=== PATIENT | female | born 1955 | race Caucasian/White ===

== ENCOUNTER 2018-06-03 00:50 | Outpatient (CLI) | payer OTHER, SELFPAY ==
--- NOTE | 2018-06-03 09:20 | DI.US_ITS ---
SYMPTOMS/DIAGNOSIS: ABD PAIN, CHOLELITHIASIS, CALCULUS OF GALLBLADDER W/O CHOLECYSTITIS W/O OBSTRUCTION, K80.20 ABDOMINAL ULTRASOUND: The visualized liver parenchyma is normal in appearance. Note is made of cholelithiasis with a 3 cm gallstone. No gallbladder wall thickening or pericholecystic fluid collection seen. There is a large quantity of gallbladder sludge. No biliary dilatation seen. The pancreas appears intact as visualized. The kidneys are unremarkable in appearance. The abdominal aorta and IVC are of normal diameter. CONCLUSION: Cholelithiasis.
--- NOTE | 2018-06-03 09:20 | DI.RAD_ITS ---
SYMPTOM/DIAGNOSIS: COUGH, R05 PA AND LATERAL CHEST: The heart is normal in size. The lungs are clear. The mediastinal structures and pleura appear intact. CONCLUSION: Normal chest.
[2018-06-03 11:31] LABS: ALT 36 U/L (12-78); AST 21 U/L (15-37); Alkaline Phosphatase 102 U/L (46-116); Anion Gap 9.6 mmol/L (3-11); BUN 13 mg/dL (7-18); Bilirubin, Total 0.4 mg/dL (0.2-1.0); CO2 29.4 mmol/L (21.0-32.0); CREATININE 1.01 mg/dL (0.55-1.02); Calcium 9.6 mg/dL (8.5-10.1); Chloride 102 mmol/L (98-107); Cholesterol 283 mg/dL (50-200); Estimated GFR 55.36 (mL/min/1.73m2); Glucose 89 mg/dL (70-100); HDL Cholesterol 71 mg/dL (40-60); LDL CHOLESTEROL 186 mg/dL (<100); Potassium 4.1 mmol/L (3.5-5.1); Sodium 141 mmol/L (136-145); Total Protein 7.8 g/dL (6.4-8.2); Triglyceride 134 mg/dL (30-150)
== END 2018-06-03 01:10 ==
PROVIDERS: PCP Family Medicine; Visit Provider Family Medicine
DX: R10.84 Generalized abdominal pain (principal); K80.20 Calculus of gallbladder without cholecystitis without obstruction; R05 Cough; E78.5 Hyperlipidemia, unspecified
CPT/HCPCS: 36415; 80053; 80061; 83721; 71046; 76700

== ENCOUNTER 2018-08-25 07:07 | Day surgery (SDC) | payer OTHER, SELFPAY ==
[2018-08-25] VITALS (8 sets, daily range): BP systolic 118–131; BP diastolic 42–90; PULSE 48–67; RESP 12–19; TEMP 36.7–36.9; O2SAT 94–99
--- NOTE | 2018-08-25 06:50 | W.PM.OP ---
Date of service: 08/25/18 Time of Service: 09:29 Operative Note DATE OF PROCEDURE: 08/25/18 PRE-OP DIAGNOSIS: Symptomatic Cholelithiasis POST-OP DIAGNOSIS: same PROCEDURE: Laparoscopic Cholecystectomy SURGEON: Elizabeth Gottlieb BEATER OPERATOR: Meenakshi Burgess ANESTHESIA: GETA, regional and local (Exparel 10 cc) ESTIMATED BLOOD LOSS: 100 PATHOLOGY: other (Gallbladder) COMPLICATIONS: None Patient was transported to: PACU Patient's condition: stable Indications: Mrs. Camacho is a pleasant 63-year-old female who was seen in the office with gallstones and postprandial right upper quadrant pain. Risks, benefits, complications were reviewed with the patient in the office. Complications include but are not limited to bleeding, infection, injury to stomach, small bowel and large bowel, injury to the pancreas, injury to the common bile duct necessitating drainage and referral to tertiary center for repair, bile leak, adverse reactions to the medications, complications of intubation including a sore throat or injury to the uvula, SC, stroke and even . Questions were entertained and answered to her satisfaction and she wished to proceed. No guarantees were given or implied. Procedure Description: After informed consent was obtained the patient was taken to the PACU and anesthesia performed a erector spine block for postoperative comfort. Once the block was in place the patient was brought to the operating room, placed in a supine position and monitors were applied. SCDs were applied to her lower extremities and she was placed under general anesthesia and intubated without difficulty. Once intubated a Marshall catheter was placed in a standard sterile fashion. Her abdomen was then prepped and draped in a sterile fashion using ChloraPrep. At this point a timeout was done and the patient's name, date of , procedure type, allergies to medications, metal in her body, antibiotic and DVT prophylaxis, and fire risk was assessed. At this point exparel was injected just above the umbilicus into the dermis and subcutaneous tissue. A 5 mm incision was made with an 11 blade. A small umbilical hernia was noticed. A small hemostat was placed gently through the hernia. The skin next to the incision was grasped with penetrating towel clamps and while pulling up on the skin a 5 mm port was placed under direct visualization through a small umbilical hernia. The abdomen was insuflated and then 3 more ports were placed. A 12 mm port was placed in the subxiphoid area and two 5 mm ports were placed in the right upper quadrant. The liver was inspected and was normal. The patient's bed was then turned to the left and her head was brought up. The gallbladder was grasped at the body and pushed towards the right shoulder. There was a lot of inflammation around the Gallbladder and around the cystic duct. A large stone was noted in the neck of the Gallbladder. The neck was grasped with a 5 mm laparoscopic tenaculum and pulled towards the right flank and down allowing me to visualize the lymph node. Using a [place] dissector with cautery the lymph node was gently dissected away from the tissues and the fatty tissue was also dissected away. The cystic duct was identified it was normal in size. The duct was dissected 360 degrees using the [place] dissector in order for me to visualize its entrance into the gallbladder. The hook was used to dissected the fat and scar tissue away from the Gallbladder in order to visualize the liver. Liver was noted behind it. There were no other structures right behind. Critical view was achieved. 3 clips were placed one proximal and 2 distal and the cystic duct was cut. The cystic artery was then identified and dissected 360 degrees. It was located just medial to the cystic duct. It was visualized going into the gallbladder. Once dissected 3 more clips were placed one proximal and 2 distal and the artery was cut. Using the hook dissector the gallbladder was then dissected away from the liver bed and placed into an Endo Catch bag. The 12 mm port was removed and the incision had to be enlarged in order to get the stones through the incision. Once the Gallbladder was removed the fascia was partailly closed with a figure of eight suture of 0 vicryl. The 12 mm port was placed back into the abdomen under direct visualization. The liver bed was inspected no bleeding was noted. The abdomen was then irrigated with a liter and a half of normal saline until the effluent was clear. Once all the fluid was suctioned out, 10 cc of Lidocaine was injected above the liver to help with postoperative right shoulder pain. The 12 mm and the 2 right upper quadrant ports were removed under direct visualization and no bleeding was noted from the fascia. The abdomen was deflated completely and lastly the umbilical port was removed. The fascia at the subxiphoid incison was closed with a second 0 vicryl suture. The umbilical hernia was closed with a figure of eight 0 Vicryl suture. The skin was cleaned and the incisions were closed with 4-0 Vicryl. The skin was dried and skin affix was applied over the closed incisions. Needle and sponge counts were correct at the end of the case. The Marshall catheter was removed. At this point the patient was woken up, extubated and taken back to recovery in stable condition. There were no immediate complications.
--- NOTE | 2018-08-25 06:53 | W.PM.DSUDISC ---
Discharge Plan Disposition Patient Disposition: HOME Condition: Good Discharge Details Reason For Visit: Biliary Cholic Attending Provider: Elizabeth Gottlieb Primary Care Provider: Isaura Early Home Meds and New Rx's Prescriptions: New acetaminophen [Tylenol] 325 mg Tablet 650 mg PO Q6H PRN (Reason: fever or pain) Qty: 30 RF: 0 ibuprofen [IBU] 600 mg Tablet 600 mg PO Q6H PRN PRN (Reason: Pain) Qty: 30 RF: 0 oxycodone 5 mg Tablet 5 mg PO Q6H PRN PRN (Reason: Pain) Qty: 10 RF: 0 Continued turmeric root extract 500 mg capsule 500 mg PO DAILY RF: 0 mdzocofwxinf-hkzomnlr-oympdu tablet 1 tab PO DAILY RF: 0 red yeast rice 600 MG capsule 600 mg PO DAILY RF: 0 Discharge Instructions Instructions: Laparoscopic Cholecystectomy (DC) Additional Instructions: Activity at Home after surgery: 1. Make sure you walk outside at least 4 times per day 2. You should be able to climb a flight of stairs 3. No driving while in pain or taking pain medications 4. No strenuous activity or heavy lifting for 2 weeks (laparoscopic surgery) Diet, Nutrition, & wound healin. Avoid alcohol until after you are recovered from your surgery 2. Make sure to eat plenty of lean protein (meat, fish, eggs, cottage cheese, beans) 3. Eat a variety of fruits and vegetables. Eat plenty of high fiber foods to avoid constipation. 4. Drink plenty of liquids to stay hydrated and avoid constipation Pain Medications: 1. Alternate Tylenol 650 mg and Ibuprofen 600 mg every 3 hours 2. If a narcotic has been prescribed take as directed only for breakthrough pain For Constipation: 1. Take Milk of Magnesia or MiraLax as needed for constipation Other: 1. You may shower daily. Do not scrub the incisions 2. Do not soak the incisions for 1 week 3. You may alternate ice and heat as needed for pain and swelling Wound Care: 1. Keep the incisions clean and dry Please call our office if you develop: 1. Fevers >101.5 2. Nausea or Vomiting 3. Worsening pain 4. Redness and thick discharge from the wounds If after hours please call the Hospital at and ask to speak to the on-call surgeon Stand Alone Forms: DSU Post op Instructions, Linda Rob (DSU) Referrals: Elizabeth Gottlieb MD [ [facility] STAFF PHYSICIAN] - 09/10/18 9:00 am Activity:: Activity as Tolerated Diet:: As Tolerated Discharge Orders Discharge Orders: Discharge Order (Routine); Ordered 08/25/18 Ordered By: Elizabeth Gottlieb DS: Diagnosis Discharge Diagnosis (1) Biliary colic symptom: Status: Acute (2) S/P laparoscopic cholecystectomy: Status: Acute
[2018-08-25] MEDS: Lactated Ringers 1,000 ML 80 ML IV (08:05)
[2018-08-25] MEDS: Bupivacaine 0.25% Pres-Free 30 ML VIAL (08:45)
[2018-08-25] MEDS: AMPICILLIN/SULBACTAM 3 GM in Normal Saline 100 ML IVPB (09:03)
[2018-08-25] MEDS: Lidocaine 1% Pres-Free 5 ML VIAL (09:57)
--- NOTE | 2018-08-25 10:24 | GB_PTH ---
PATIENT: Tatum Camacho LOC: [facility] U#:[id number] AGE/SX: 63/F ROOM: RE08/25/[address]: Elizabeth Gottlieb MD : 1955 BED: DIS: 08/25/2018 SPEC #: [id number] RECD: 08/25/18 12:36 STATUS: RAMU REQ #: [id number] POLINA: 08/25/18 10:[address]: Elizabeth Gottlieb DEPT: Surgical Specimen RECD BY: Italia Osei ENTERED: 08/25/18 12:36 SP TYPE: GB OTHR DR: Isaura Early MD, DC Tissues: 1 - GALLBLADDER Procedures: GROSS AND MICRO LEVEL 3 Comments: [id number]
[2018-08-25] MEDS: Bupivacaine LIPOSOME/PF 133 MG/10 ML VIAL IJ (10:41)
== END 2018-08-25 14:43 | disposition home or self-care (01) ==
LOC: SUR 07:08
PROVIDERS: PCP Family Medicine; Visit Provider Surgery
PROC: 0FT44ZZ Resection of Gallbladder, Percutaneous Endoscopic Approach (ICD-10-PCS; CPT 47562; principal; 2018-08-25 08:30)
DX: K80.10 Calculus of gallbladder with chronic cholecystitis without obstruction (principal); K21.9 Gastro-esophageal reflux disease without esophagitis
CPT/HCPCS: 47562; 76942; 88304; J0295; J0360; J1100; J1885; J2250; J2405

== ENCOUNTER 2019-04-22 03:08 | Outpatient (CLI) | payer OTHER, SELFPAY ==
--- NOTE | 2019-04-22 09:07 | DI.US_ITS ---
EXAM: US ABDOMEN CLINICAL HISTORY: RUQ PAIN, S/P LAPAROSCOPIC CHOLECYSTECTOMY, R10.11, Z90.49 TECHNIQUE: Ultrasound performed using standard protocol. COMPARISON: US OR ANESTHESIA from 08/25/2018 FINDINGS: Visualized liver parenchyma is normal in appearance. The patient has reportedly had a recent cholecy stectomy. No focal fluid collection in the gallbladder fossa or elsewhere. Minimal heterogeneous ec hogenicity seen in the gallbladder fossa consistent minimal resolving hematoma. No biliary dilatatio n. Pancreas is not well visualized grossly unremarkable. Spleen and kidneys are normal in appearanc e. No evidence of urinary tract calcification or obstruction. IMPRESSION: Unremarkable abdominal ultrasound post cholecystectomy. No evidence of abscess.
== END 2019-04-22 03:28 ==
PROVIDERS: PCP Family Medicine; Visit Provider Family Medicine
DX: R10.11 Right upper quadrant pain (principal); Z90.49 Acquired absence of other specified parts of digestive tract
CPT/HCPCS: 76700

== ENCOUNTER 2020-07-09 02:14 | Outpatient (CLI) | payer MEDICARE, OTHER, SELFPAY ==
--- NOTE | 2020-07-09 07:15 | DI.CT_ITS ---
EXAM: CT NECK W CLINICAL HISTORY: neck mass,R22.1. TECHNIQUE: Imaging Protocol: Axial CT angiography was performed with multi-slice acquisition and mu lti-planar and/or 3D reconstructions. CONTRAST MATERIAL: Intravenous: Omnipaque 350 Contrast volume:100 cc COMPARISON: No exams were available for comparison FINDINGS: The right maxillary sinus is diminutive and opacified and exhibits what is probably a medial wall alexandro gical defect. Left maxillary sinus appears unremarkable. Sphenoid sinuses are clear as are the visu alized ethmoidal air cells. Tissues of the nasopharynx are symmetrical. Oropharynx tissues appear unremarkable. Hypopharynx tissues appear unremarkable. No obvious abnormality in the vallecular I nor asymmetry of the free edge of the epiglottis. Supraglottic airway is thin but probably related to respiration du ring scan acquisition. The aryepiglottic folds appear symmetrical. Vocal cords unremarkable. Subgl ottic airway unremarkable. Thyroid gland is unremarkable. Salivary glands: No significant masses in the left parotid gland. There is a small nodule in the inf erior aspect of the right parotid gland which measures 8 by 6 millimeters. Both submandibular glands appear unremarkable. Lymph nodes: There is no significant lymphadenopathy in the left side of the neck. In the right-side of the neck there are 2 slightly prominent lymph nodes posterior and posterolateral to the sternocleidomastoid m uscle. These measure up 11 by 9 and 9 by 8 millimeters. Just inferomedial to these there is a 3rd l ymph node measuring 10 by 7 millimeters, this behind the lateral aspect of the right sternocleidomast oid muscle and just lateral to the right internal jugular vein. This is just above the right supracl avicular region. Vascular: No significant tight stenosis the carotid bifurcations and proximal internal carotid arteri es in the neck. Both vertebral arteries contribute to the formation of the basilar artery at the [facility]. IMPRESSION: 1. There are 3 enlarged lymph nodes with measurements described above in the lower right side of the neck at and just above the supraclavicular region. There is some mild subcutaneous fat streaking in this region. No drainable fluid collection. There are few smallel shotty lymph nodes in the left cesar praclavicular region noted. 2. Small nodule or lymph node in the inferior aspect of the right parotid gland measuring 8 x 6 jeny meters. 3. Diminutive and opacified right maxillary sinus incidentally noted. RADIATION DOSE DELIVERED: 368.06mGy.cm Total DLP DATA REPOSITORY: All CT scans at this facility are submitted to the National Radiology Data Registry (NRDR) Dose Index Registry (DIR) with the [employer] (ACR). RADIATION OPTIMIZATION: All CT scans at this facility use at least one of these dose optimization te chniques: automated exposure control; mA and/or kV adjustment per patient size (includes targeted exa ms where dose is matched to clinical indication); or iterative reconstruction.
[2020-07-09 12:12] LABS: Estimated GFR 55.64 (mL/min/1.73m2)
[2020-07-09] MEDS: Omnipaque 350 MG/ML 100 ML BTL IV (12:37)
[2020-07-09] MEDS: Normal Saline - Diluent 50 ML VIAL IV (12:38)
[2020-07-09] MEDS: Normal Saline Flush 10 ML SYR IVP (12:39)
== END 2020-07-09 02:34 ==
PROVIDERS: PCP Family Medicine; Visit Provider Family Medicine
DX: R59.0 Localized enlarged lymph nodes (principal)
CPT/HCPCS: 70491; 82565; J3490

== ENCOUNTER 2020-07-27 09:19 | Outpatient (CLI) | payer MEDICARE, OTHER, SELFPAY ==
[2020-07-28 13:43] LABS: COVID-19 RT-PCR UVMMC Result Negative (Negative)
== END 2020-07-27 09:20 | disposition home or self-care (01) ==
PROVIDERS: PCP Family Medicine; Visit Provider Family Medicine
DX: Z20.822 Contact with and (suspected) exposure to COVID-19 (principal)
CPT/HCPCS: U0003; U0005

== ENCOUNTER 2020-10-09 01:40 | Outpatient (CLI) | payer MEDICARE, OTHER, SELFPAY ==
--- NOTE | 2020-10-09 08:45 | DI.MAMMO_ITS ---
Exam(s) MAMMO SCREENING EXAM: MAMMO SCREENING CLINICAL HISTORY: SCREENING, Z12.39 TECHNIQUE: Mammograms were interpreted according to the usual protocol including computer analysis w [email or web address] CAD system, tomosynthesis and C-view imaging. COMPARISON: FINDINGS: The breasts are of moderate density with fairly symmetrical distribution of fibroglandular tissue. N o dominant mass or clumped microcalcification is identified in either breast. The current examinatio n is compared with the previous examination of April 2017 and there has been no gross interval jordan ge in appearance in comparison with the prior study. IMPRESSION: No specific evidence of malignancy at this time. Routine screening examinations are suggested at yea rly intervals in this age group according to the ACS ACR guidelines. BI-RADS Category 1 - Negative Breast Density - Category B - Scattered areas of fibroglandular density
== END 2020-10-09 02:00 ==
PROVIDERS: PCP Family Medicine; Visit Provider Family Medicine
DX: Z12.31 Encounter for screening mammogram for malignant neoplasm of breast (principal); R92.8 Other abnormal and inconclusive findings on diagnostic imaging of breast
CPT/HCPCS: 77063; 77067

== ENCOUNTER 2020-11-26 01:43 | Outpatient (CLI) | payer MEDICARE, OTHER, SELFPAY ==
--- NOTE | 2020-11-26 | DI.CT_ITS ---
Exam(s) CT NECK W EXAM: CT NECK W CLINICAL HISTORY: NECK MASS,R22.1. TECHNIQUE: Imaging Protocol: Axial computed tomography images with coronal and sagittal reformatted images were created and reviewed CONTRAST MATERIAL: Intravenous: Omnipaque 350 Contrast volume:100 ml Contrast route:IV - Oral: / no COMPARISON: CT CT NECK W from 07/09/2020 FINDINGS: Parotids/submandibular/thyroid gland: Normal. Lymphadenopathy: There has been significant interval decrease in size of previously noted right-side d supraclavicular lymph nodes. The area of the palpable abnormality shows a 4 millimeter lymph node i s significantly decreased in size when compared with the previous exam where it measured 12 millimete rs in greatest dimension. This is located laterally. There is a stable 8 millimeter nodule inferior t o the right parotid gland, consistent with a lymph node. Carotids/Jugular: Within normal limits. Soft tissues: The floor the mouth is unremarkable. The epiglottis and vocal cords are within normal limits. Images through both lung apices are unremarkable. IMPRESSION: Significant interval decrease in size of right-sided lymph nodes when compared with the previous exam . No suspicious masses. RADIATION DOSE DELIVERED: 439.13mGy.cm Total DLP DATA REPOSITORY: All CT scans at this facility are submitted to the National Radiology Data Registry (NRDR) Dose Index Registry (DIR) with the [employer] (ACR). RADIATION OPTIMIZATION: All CT scans at this facility use at least one of these dose optimization te chniques: automated exposure control; mA and/or kV adjustment per patient size (includes targeted exa ms where dose is matched to clinical indication); or iterative reconstruction.
[2020-11-26 12:38] LABS: BUN 14 mg/dL (7-18); CREATININE 0.9 mg/dL (0.55-1.02)
[2020-11-26] MEDS: Normal Saline - Diluent 50 ML VIAL IV (12:53)
[2020-11-26] MEDS: Omnipaque 350 MG/ML 100 ML BTL IJ (12:54)
== END 2020-11-26 02:03 ==
PROVIDERS: PCP Family Medicine; Visit Provider Physician Assistant
DX: R22.1 Localized swelling, mass and lump, neck (principal); R59.0 Localized enlarged lymph nodes
CPT/HCPCS: 36415; 70491; 84520; 82565; J3490

== ENCOUNTER 2021-03-08 03:43 | Outpatient (CLI) | payer MEDICARE, OTHER, SELFPAY ==
[2021-03-08 07:27] LABS: HCT 45.1 % (36.0-46.0); HGB 14.8 g/dL (11.2-15.7); MCH 30.6 pg (27.0-33.0); MCHC 32.8 % (32.0-36.0); MCV 93.2 fL (80-95); MPV 9.3 fL (8.0-11.0); Platelet Count 314 10^3/uL (130-400); RBC 4.84 10^6/uL (3.93-5.22); RDW 12.1 % (11.7-14.6); RDW-SD 41.6 fL; WBC 6.18 10^3/uL (4.4-10.8)
[2021-03-08 09:32] LABS: ALT 36 U/L (14-59); AST 21 U/L (15-37); Alkaline Phosphatase 78 U/L (46-116); Anion Gap 9.5 mmol/L (3-11); BUN 12 mg/dL (7-18); Bilirubin, Total 0.5 mg/dL (0.2-1.0); CO2 28.5 mmol/L (21.0-32.0); Calcium 9.1 mg/dL (8.5-10.1); Calculated LDL 179 mg/dL (<100); Chloride 105 mmol/L (98-107); Cholesterol 274 mg/dL (<200); Estimated GFR 55.64 (mL/min/1.73m2); Glucose 84 mg/dL (74-106); HDL Cholesterol 75 mg/dL (40-60); Lipase 120 U/L (73-393); Potassium 4.3 mmol/L (3.5-5.1); Sodium 143 mmol/L (136-145); TSH (W/Ref FT4) 1.28 uIU/mL (0.36-3.74); Total Protein 7.2 g/dL (6.4-8.2); Triglyceride 100 mg/dL (<150)
[2021-03-11 10:20] LABS: Hepatitis C Ab w Rflx HCV PCR Negative (Negative)
[2021-03-11 15:05] LABS: IgA 177 mg/dL (85-499); Interpretation (See Note); Tissue Transglutaminase IgA <1.2 U/mL (<4.0)
== END 2021-03-08 03:44 | disposition home or self-care (01) ==
LOC: LBO 03:43
PROVIDERS: PCP Family Medicine; Visit Provider Family Medicine
DX: I10 Essential (primary) hypertension; Z11.59 Encounter for screening for other viral diseases; Z13.6 Encounter for screening for cardiovascular disorders; R10.13 Epigastric pain
CPT/HCPCS: 36415; 80053; 80061; 82784; 83516; 83690; 85027; 86803; 84443

== ENCOUNTER 2022-10-27 10:20 | Outpatient (REF) | payer MEDICARE, OTHER, SELFPAY ==
--- NOTE | 2022-10-27 09:30 | PAPFT_PTH ---
PATIENT: Tatum Camacho LOC: [facility] U#:[id number] AGE/SX: 67/F ROOM: RE10/27/[address]: Isaura Early MD, DC : 1955 BED: DIS: 10/27/2022 SPEC #: [id number] RECD: 10/27/22 12:47 STATUS: RAMU REKiran #: [id number] POLINA: 10/27/22 09:[address]: Isaura Early DEPT: [facility] Cytology RECD BY: Italia Osei Tissues: 1 - CX/ENDOCX FOR PAP SMEARS Procedures: PAP THIN PREP/UVM Screening HPV DNA PROBE Comments: [id number]
== END 2022-10-27 10:21 | disposition home or self-care (01) ==
LOC: LBN 10:20
PROVIDERS: PCP Family Medicine; Visit Provider Family Medicine
DX: Z12.4 Encounter for screening for malignant neoplasm of cervix (principal); Z11.51 Encounter for screening for human papillomavirus (HPV)
CPT/HCPCS: 88142; 87624

== ENCOUNTER 2022-11-03 02:58 | Outpatient (CLI) | payer MEDICARE, OTHER, SELFPAY ==
--- NOTE | 2022-11-03 08:00 | DI.MAMMO_ITS ---
Exam(s) MAMMO SCREENING EXAM: MAMMO SCREENING CLINICAL HISTORY: SCREENING, Z12.39 TECHNIQUE: Mammograms were interpreted according to the usual protocol including computer analysis w [employer] CAD system, tomosynthesis and C-view imaging. COMPARISON: 2017 and 2020 FINDINGS: The breasts are composed of scattered fibroglandular densities, Breast Density category B. No suspicious masses or suspicious microcalcifications are seen. No skin thickening or abnormal axillary lymph nodes are seen. There has been no significant change from prior exams. IMPRESSION: BI-RADS Category 1, Negative mammogram Yearly screening mammography is recommended. Breast Density - Category B, scattered fibroglandular densities. A negative radiographic report should not delay biopsy if a dominant or clinically suspicious mass is present. Up to ten percent of cancers are not identified on mammography. A negative report may reinforce clinical impression. Adenosis and dense breasts may obscure an underlying neoplasm. False positive reports average 6 to 10%. Patient will receive a letter notifying them of these results.
== END 2022-11-03 03:18 ==
LOC: DI 02:58
PROVIDERS: PCP Family Medicine; Visit Provider Family Medicine
DX: Z12.31 Encounter for screening mammogram for malignant neoplasm of breast (principal)
CPT/HCPCS: 77063; 77067

== ENCOUNTER 2023-12-07 02:21 | Outpatient (CLI) | payer MEDICARE, OTHER, SELFPAY ==
--- NOTE | 2023-12-07 06:45 | DI.MAMMO_ITS ---
Exam(s) MAMMO SCREENING EXAM: MAMMO SCREENING CLINICAL HISTORY: screening TECHNIQUE: Mammograms were interpreted according to the usual protocol including computer analysis w [employer] CAD system, tomosynthesis and C-view imaging. COMPARISON: 2017 through 2022 FINDINGS: The breasts are composed of scattered fibroglandular densities, Breast Density category B. No suspicious masses or suspicious microcalcifications are seen. No skin thickening or abnormal axillary lymph nodes are seen. There has been no significant change from prior exams. IMPRESSION: BI-RADS Category 1, Negative mammogram Yearly screening mammography is recommended. Breast Density - Category B, scattered fibroglandular densities. A negative radiographic report should not delay biopsy if a dominant or clinically suspicious mass is present. Up to ten percent of cancers are not identified on mammography. A negative report may reinforce clinical impression. Adenosis and dense breasts may obscure an underlying neoplasm. False positive reports average 6 to 10%. Patient will receive a letter notifying them of these results.
== END 2023-12-07 02:41 ==
LOC: DI 02:21
PROVIDERS: PCP Family Medicine; Visit Provider Family Medicine
DX: Z12.31 Encounter for screening mammogram for malignant neoplasm of breast (principal)
CPT/HCPCS: 77063; 77067

== ENCOUNTER 2023-12-09 03:00 | Outpatient (CLI) | payer MEDICARE, OTHER, SELFPAY ==
[2023-12-09 12:40] LABS: HCT 42.9 % (36.0-46.0); HGB 14.4 g/dL (11.2-15.7); MCH 30.9 pg (27.0-33.0); MCHC 33.6 % (32.0-36.0); MCV 92 fL (80-95); MPV 9.6 fL (8.0-11.0); Platelet Count 290 10^3/uL (130-400); RBC 4.66 10^6/uL (3.93-5.22); RDW 12.8 % (11.7-14.6); RDW-SD 43.2 fL; WBC 6.74 10^3/uL (4.4-10.8)
[2023-12-09 13:03] LABS: ALT 30 U/L (14-59); AST 19 U/L (15-37); Alkaline Phosphatase 73 U/L (46-116); Anion Gap 8.5 mmol/L (3-11); BUN 14 mg/dL (7-18); Bilirubin, Total 0.47 mg/dL (0.2-1.0); CO2 27.5 mmol/L (21.0-32.0); Calcium 9.3 mg/dL (8.5-10.1); Calculated LDL 159 mg/dL (<100); Chloride 105 mmol/L (98-107); Cholesterol 258 mg/dL (<200); Estimated GFR 61.36 (mL/min/1.73m2); Glucose 97 mg/dL (74-106); HDL Cholesterol 84 mg/dL (40-60); Potassium 3.9 mmol/L (3.5-5.1); Sodium 141 mmol/L (136-145); Total Protein 7.7 g/dL (6.4-8.2); Triglyceride 75 mg/dL (<150)
== END 2023-12-09 03:01 | disposition home or self-care (01) ==
LOC: LOS 03:00
PROVIDERS: PCP Family Medicine; Visit Provider Family Medicine
DX: E78.5 Hyperlipidemia, unspecified (principal); D64.9 Anemia, unspecified; E03.9 Hypothyroidism, unspecified; I10 Essential (primary) hypertension
CPT/HCPCS: 36415; 80053; 80061; 85027; 84443

== ENCOUNTER 2025-02-08 01:36 | Outpatient (CLI) | payer MEDICARE, OTHER, SELFPAY ==
[2025-02-08 07:53] LABS: ALT 46 U/L (14-59); AST 27 U/L (15-37); Albumin 3.6 g/dL (3.4-5.0); Alkaline Phosphatase 77 U/L (46-116); Anion Gap 8.0 mmol/L (3-11); BUN 14 mg/dL (7-18); Bilirubin, Total 0.4 mg/dL (0.2-1.0); CO2 28.0 mmol/L (21.0-32.0); Calcium 9.1 mg/dL (8.5-10.1); Calculated LDL 156 mg/dL (<100); Chloride 104 mmol/L (98-107); Cholesterol 251 mg/dL (<200); Estimated GFR 60.98 (mL/min/1.73m2); Glucose 92 mg/dL (74-106); HDL Cholesterol 77 mg/dL (>or=50); Potassium 4.1 mmol/L (3.5-5.1); Sodium 140 mmol/L (136-145); Total Protein 7.2 g/dL (6.4-8.2); Triglyceride 91 mg/dL (<150)
== END 2025-02-08 01:37 | disposition home or self-care (01) ==
PROVIDERS: PCP Family Medicine; Visit Provider Family Medicine
DX: E78.5 Hyperlipidemia, unspecified (principal); R10.11 Right upper quadrant pain
CPT/HCPCS: 36415; 80053; 80061